=== PATIENT | male | born 2000 | race African-American/Black ===

== ENCOUNTER 2019-03-22 04:50 | Emergency (ER) | payer BC ==
[~2019-03-22] VITALS: Ht 182.9 cm; Wt 64.0 kg
[2019-03-22 06:40] VITALS: BP 132/88
[2019-03-22 07:05] LABS: CLARITY URINE CLOUDY (CLEAR); COLOR URINE YELLOW (YELLOW); KETONES URINE NEGATIVE (NEGATIVE); LEUKOCYTE ESTERASE URINE 3+ (NEGATIVE); NITRITE URINE NEGATIVE (NEGATIVE); OCCULT BLOOD URINE NEGATIVE (NEGATIVE); PH URINE 6.5 (4.5-8.0); PROTEIN URINE NEGATIVE (NEGATIVE); SPECIFIC GRAVITY URINE 1.017 (1.005-1.030)
[2019-03-22] MEDS ORDERED: AZITHROMYCIN 500 MG TABLET PO SCH (08:00)
[2019-03-22] MEDS ORDERED: CEFTRIAXONE SODIUM 250 MG/VIAL IM ONE (08:00)
== END 2019-03-22 09:09 | disposition home or self-care (01) ==
LOC: ER 04:50
DX: J02.9 Acute pharyngitis, unspecified (principal); N34.2 Other urethritis; H93.8X2 Other specified disorders of left ear; F12.10 Cannabis abuse, uncomplicated; Z98.890 Other specified postprocedural states
CPT/HCPCS: 81003; 87077; 87086; 96372; 99283; J0696

== ENCOUNTER 2020-06-11 12:16 | Emergency (ER) | payer BC ==
[~2020-06-11] VITALS: Ht 182.9 cm; Wt 75.0 kg
[2020-06-11] MEDS ORDERED: LIDOCAINE HCL 1% 20ML VIAL (Pyxis) INJ INFIL ONE (14:45)
[2020-06-11] MEDS ORDERED: AZITHROMYCIN 500 MG TABLET PO ONE (14:45)
[2020-06-11] MEDS ORDERED: CEFTRIAXONE SODIUM 250 MG/VIAL IM ONE (14:45)
[2020-06-11 15:37] VITALS: BP 121/81
[2020-06-15 04:07] LABS: NEISSERIA GONORRHOEAE NAA Negative (Negative)
== END 2020-06-11 15:40 | disposition home or self-care (01) ==
LOC: ER 12:16
DX: R59.0 Localized enlarged lymph nodes (principal); Z20.2 Contact with and (suspected) exposure to infections with a predominantly sexual mode of transmission
CPT/HCPCS: 86592; 86694; 86695; 87491; 87591; 96372; 99283; J0696; J3490

== ENCOUNTER 2021-04-19 07:40 | Emergency (ER) | payer BC ==
[~2021-04-19] VITALS: Ht 182.9 cm; Wt 77.0 kg
[2021-04-19] MEDS ORDERED: IBUPROFEN 600MG TABLET PO ONE (08:15)
[2021-04-19] MEDS ORDERED: TETANUS, DIPHTHERIA, PERTUSSIS VAC/PF 0.5ML (>7YR OLD) IM ONE (08:15)
[2021-04-19] MEDS ORDERED: IBUP-2029 MT (10:05)
[2021-04-19 10:10] VITALS: BP 120/76
== END 2021-04-19 10:10 | disposition home or self-care (01) ==
LOC: ER 07:40
DX: S62.396A Other fracture of fifth metacarpal bone, right hand, initial encounter for closed fracture (principal); F12.10 Cannabis abuse, uncomplicated; W26.8XXA Contact with other sharp object(s), not elsewhere classified, initial encounter; Y93.89 Activity, other specified; Y92.89 Other specified places as the place of occurrence of the external cause; Y99.8 Other external cause status
CPT/HCPCS: 29125; 73130; 90471; 90715; 99283